=== PATIENT | female | born 1970 | race Two or more races ===

== ENCOUNTER 2017-09-23 15:02 | Emergency (ER) | payer SELFPAY ==
[~2017-09-23] VITALS: Ht 172.7 cm; Wt 108.9 kg
[2017-09-23 15:22] VITALS: BP 136/80
== END 2017-09-23 20:00 | disposition left against medical advice (07) ==
LOC: ER 15:16
DX: F10.129 Alcohol abuse with intoxication, unspecified (principal); Z53.21 Procedure and treatment not carried out due to patient leaving prior to being seen by health care provider